=== PATIENT | female | born 1965 | race Asian ===

== ENCOUNTER 2020-07-21 18:29 | Inpatient (IN) | payer OTHER ==
[~2020-07-21] VITALS: Ht 157.5 cm; Wt 66.8 kg
[2020-07-21] MEDS ORDERED: MONT-35 PO (21:56)
[2020-07-21] MEDS ORDERED: QUET25TA PO (21:56)
[2020-07-21] MEDS ORDERED: ATEN-73 PO (21:56)
[2020-07-21] MEDS ORDERED: ALBU8HFA IH (21:56)
[2020-07-21] MEDS ORDERED: ZOLPIDEM TARTRATE 10 MG TABLET PO PRN (22:15)
[2020-07-21] MEDS ORDERED: QUEtiapine FUMARATE 100 MG TABLET PO PRN (22:15)
[2020-07-21 22:54] LABS: COVID AG,FIA SOURCE NASOPHARYNGEAL
[2020-07-21] MEDS ORDERED: QUEtiapine FUMARATE 100 MG TABLET PO ONE (23:00)
[2020-07-21] MEDS ORDERED: LORazepam 1 MG TABLET PO ONE (23:00)
[2020-07-21] MEDS ORDERED: ASPI-1444 PO (23:18)
[2020-07-21 23:25] LABS: BASOPHILS % (AUTO) 0.6 % (0.0-2.0); EOSINOPHILS % (AUTO) 2.3 % (1.0-6.0); HEMATOCRIT 41.9 % (36-46); HEMOGLOBIN 13.8 g/dL (12.0-16.0); LYMPHOCYTES % (AUTO) 18.8 % (22.0-44.0); MEAN CORPUSCULAR HEMOGLOBIN 25.7 pg (26.0-34.0); MEAN CORPUSCULAR VOLUME 78 fL (80-100); MONOCYTES # (AUTO) 0.5 K/uL (0.1-1.0); NEUTROPHILS % (AUTO) 73.3 % (40.0-70.0); PLATELET COUNT (AUTO) 329 K/uL (150-450); RED BLOOD CELL COUNT(AUTO) 5.39 MIL/uL (4.00-5.20); RED CELL DISTRIBUTION WIDTH 16.8 % (11.5-14.5)
[2020-07-21 23:33] LABS: ANION GAP 10 mmol/L (8-16); CALCIUM, TOTAL 9.7 mg/dL (8.8-10.5); CARBON DIOXIDE 27 mmol/L (22-29); CHLORIDE 102 mmol/L (98-107); CREATININE 0.78 mg/dL (0.60-1.30); GLOMERULAR FILTR. RATE CALC > 60 mL/min (>60); GLUCOSE,RANDOM 105 mg/dL (70-110); POTASSIUM 3.9 mmol/L (3.5-5.1); SODIUM SERUM 139 mmol/L (136-145); UREA NITROGEN, BLOOD 8 mg/dL (7-18)
[2020-07-21 23:39] LABS: ALANINE AMINOTRANSFERASE 46 U/L (12-78); ALBUMIN 4.5 g/dL (3.4-5.0); ALKALINE PHOSPHATASE 75 U/L (46-116); ASPARTATE AMINOTRANSFERASE 22 U/L (15-37); BILIRUBIN,TOTAL 0.5 mg/dL (0.1-1.0); TOTAL PROTEIN, SERUM 8.3 g/dL (6.4-8.2)
[2020-07-22 04:07] VITALS: BP 125/75
[2020-07-22] MEDS ORDERED: PNEUMOCOCCAL VACCINE POLYVALENT 0.5 ML VIAL [PPSV23] IM. ONE (06:45)
[2020-07-22] MEDS ORDERED: ACETAMINOPHEN 325 MG TABLET PO PRN (07:45)
[2020-07-22] MEDS ORDERED: MAGNESIUM HYDROXIDE SUSPENSION 30 ML UDCUP PO PRN (07:45)
[2020-07-22] MEDS ORDERED: CloNIDine HCL 0.1 MG TABLET PO PRN (07:45)
[2020-07-22] MEDS ORDERED: IBUPROFEN 400 MG TABLET PO PRN (07:45)
[2020-07-22] MEDS ORDERED: LOPERAMIDE HCL 2 MG CAPSULE PO PRN (07:45)
[2020-07-22] MEDS ORDERED: PETROLATUM,WHITE 28 GM JELLY TP PRN (07:45)
[2020-07-22] MEDS ORDERED: NICOTINE 14 MG/24 HOUR PATCH TD PRN (07:45)
[2020-07-22] MEDS ORDERED: MAG HYDROX/AL HYDROX/SIMETH ES 30 ML SUSPENSION UDCUP PO PRN (07:45)
[2020-07-22] MEDS ORDERED: GuaiFENesin/D-METHORPHAN [SUGAR-FREE] 200-20MG/10 ML SYRUP UDCUP PO PRN (07:45)
[2020-07-22] MEDS ORDERED: DOCUSATE SODIUM 100 MG CAPSULE PO PRN (07:45)
[2020-07-22] MEDS ORDERED: ONDANSETRON HCL 4 MG TABLET PO PRN (07:45)
[2020-07-22 07:56] LABS: CHOL/HDL RATIO 4.8 (3.9-5.7)
[2020-07-22 08:20] VITALS: BP 127/81
[2020-07-22] MEDS: ASPIRIN 81 MG DR TABLET PO SCH (09:04)
[2020-07-22] MEDS: ATENOLOL 25 MG TABLET PO SCH (09:04)
[2020-07-22] MEDS: LORazepam 2 MG TABLET PO PRN ×2 (09:12→16:36)
[2020-07-22] MEDS: QUEtiapine FUMARATE 25 MG TABLET PO SCH (12:31)
[2020-07-22 16:17] VITALS: BP 131/83
[2020-07-22] MEDS: MONTELUKAST SODIUM 10 MG TABLET PO SCH (16:36)
[2020-07-22] MEDS: QUEtiapine FUMARATE 100 MG TABLET PO SCH (19:54)
[2020-07-23 06:20] VITALS: BP 118/69
[2020-07-23 08:09] VITALS: BP 123/72
[2020-07-23] MEDS: MONTELUKAST SODIUM 10 MG TABLET PO SCH (08:26)
[2020-07-23] MEDS: ATENOLOL 25 MG TABLET PO SCH (08:26)
[2020-07-23] MEDS: ASPIRIN 81 MG DR TABLET PO SCH (08:26)
[2020-07-23] MEDS: QUEtiapine FUMARATE 25 MG TABLET PO SCH (08:29)
[2020-07-23] MEDS: ALBUTEROL SULFATE HFA 90 MCG/PUFF 8 GM INHALER IH PRN ×2 (14:13→20:25)
[2020-07-23 16:01] VITALS: BP 130/89
[2020-07-23] MEDS: QUEtiapine FUMARATE 100 MG TABLET PO SCH (20:24)
[2020-07-24 04:14] VITALS: BP 128/74
[2020-07-24] MEDS: ASPIRIN 81 MG DR TABLET PO SCH (08:02)
[2020-07-24] MEDS: QUEtiapine FUMARATE 25 MG TABLET PO SCH (08:02)
[2020-07-24] MEDS: ALBUTEROL SULFATE HFA 90 MCG/PUFF 8 GM INHALER IH PRN ×2 (08:02→21:20)
[2020-07-24] MEDS: MONTELUKAST SODIUM 10 MG TABLET PO SCH (08:02)
[2020-07-24 08:05] VITALS: BP 131/93
[2020-07-24] MEDS: ATENOLOL 25 MG TABLET PO SCH (08:21)
[2020-07-24 16:08] VITALS: BP 140/82
[2020-07-24] MEDS: QUEtiapine FUMARATE 100 MG TABLET PO SCH (20:05)
[2020-07-24] MEDS: LORazepam 2 MG TABLET PO PRN (20:06)
[2020-07-25 00:06] VITALS: BP 138/80
[2020-07-25 08:01] VITALS: BP 129/77
[2020-07-25] MEDS: ATENOLOL 25 MG TABLET PO SCH (08:42)
[2020-07-25] MEDS: ASPIRIN 81 MG DR TABLET PO SCH (08:42)
[2020-07-25] MEDS: QUEtiapine FUMARATE 100 MG TABLET PO SCH (08:42)
[2020-07-25] MEDS: MONTELUKAST SODIUM 10 MG TABLET PO SCH (09:02)
[2020-07-25] MEDS: QUEtiapine FUMARATE 25 MG TABLET PO SCH (10:18)
[2020-07-25 16:03] VITALS: BP 134/77
[2020-07-25] MEDS ORDERED: QUET100T PO (17:48)
== END 2020-07-25 22:54 | disposition home or self-care (01) | DRG 885 ==
LOC: EDSEX 18:31 → EMS 18:31 → B3A 22:06
PROVIDERS: ADMIT Psychiatry & Neurology Child & Adolescent Psychiatry; ATTEND Psychiatry & Neurology Child & Adolescent Psychiatry
DX: F25.9 Schizoaffective disorder, unspecified (principal); R45.851 Suicidal ideations; Z20.822 Contact with and (suspected) exposure to COVID-19; F41.9 Anxiety disorder, unspecified; I10 Essential (primary) hypertension; J44.9 Chronic obstructive pulmonary disease, unspecified
CPT/HCPCS: 80053; 80061; 85025; 87426; 99285; G0480; J3535